=== PATIENT | female | born 1945 | race Caucasian/White ===

== ENCOUNTER 2016-11-14 21:00 | Inpatient (IN) | payer MEDICARE ==
--- NOTE | ~2016-11-14 | PN ---
Unit #: [id number] #: [id number] Patient: CHEYENNE DE LEON [id number] [facility] [address] [place] [address] [id number] MR#: [id number] NAME: CHEYENNE DE LEON ROOM: P203 Age: 71 Sex: F Admission Date: 11/14/2016 : 1945 Attending Physician: Willy Mckeon M.D. Admitting Physician: Willy Mckeon M.D. Primary Care Physician: Primary Care Physician Maria T GIANG NOTES DATE 11/23/2016 SUBJECTIVE Ms. De Leon is a 71-year-old white female, who was seen today and chart was reviewed, and case was discussed with the staff. She has been anxious, withdrawn, though has not shown any agitation or irritability. Meanwhile, she has been cooperative with treatment recommendations. MENTAL STATUS EXAMINATION An elderly white female who was casually dressed with fair personal hygiene and appears to be in no acute distress or discomfort. She was awake and alert with impaired attention . She denies any suicidal or homicidal ideations . TREATMENT PLAN 1. We will continue her on her current treatment protocol. We will monitor her response to the medications and make further adjustments as needed. 2. We will continue to follow up. Dictated by... Mary Serrano/gloria TD: 11/25/2016 10:54 JOB #: [id number] BRENDA PROGRESS NOTES Page 1 of 1 X Willy Mckeon MD PROGRESS NOTE
--- NOTE | ~2016-11-14 | PN ---
Unit #: [id number] #: [id number] Patient: CHEYENNE DE LEON [id number] [facility] [address] [place] [address] [id number] I MR#: [id number] NAME: CHEYENNE DE LEON ROOM: P203 Age: 71 Sex: F Admission Date: 11/14/2016 : 1945 Attending Physician: Willy Mckeon M.D. Admitting Physician: Willy Mckeon M.D. Primary Care Physician: Primary Care Physician Maria T GIANG NOTES DATE OF SERVICE 11/21/2016 DISCUSSION Ms. De Leon is a 71-year-old white female with mood disorder and substance abuse who was seen today. Chart was reviewed and case was discussed with the staff. She remains anxious, withdrawn, disorganized and has been exhibiting some confusional state as she stated that she does not know where she is going to go, and if she has any housing or not. Meanwhile, I am going to try to reach out to (1) __ who was prescribing her Xanax and Adderall all at the same time, and the patient has had some delirium tremor going through the detox from those medications running out all those prescriptions 2 weeks ahead of time, and abusing them on regular basis. MENTAL STATUS EXAMINATION An elderly white female who is casually dressed with fair personal hygiene, appears to be in no acute distress or discomfort. The patient was awake and alert with impaired attention and concentration. Her mood is anxious with congruent affect. She denies any suicidal or homicidal ideations and also denies any auditory or visual hallucinations. Her insight and judgment remain slightly impaired. TREATMENT PLAN 1. We will continue her on her current medications and treatment protocol. We will monitor her response to the medications and make further adjustments as needed. 2. We will continue to follow up. Dictated by... Willy Mckeon M.D. IAA/chelsig TD: 11/22/2016 07:11 JOB #: [id number] Unit #: [id number] #: [id number] Patient: CHEYENNE DE LEON RAHAT NOTES Page 1 of 1 X Willy Mckeon MD PROGRESS NOTE
--- NOTE | ~2016-11-14 | PN ---
Unit #: [id number] #: [id number] Patient: CHEYENNE DE LEON [id number] [facility] [address] [place] [address] [id number] I MR#: [id number] NAME: CHEYENNE DE LEON ROOM: P203 Age: 71 Sex: F Admission Date: 11/14/2016 : 1945 Attending Physician: Willy Mckeon M.D. Admitting Physician: Willy Mckeon M.D. Primary Care Physician: Primary Care Physician Maria T GUTIERREZ PROGRESS NOTES DATE OF SERVICE 11/20/2016 DISCUSSION Ms. De Leon is a 71-year-old white female who was seen today. Chart was reviewed and case was discussed with the staff. She has been anxious, withdrawn, and rather seclusive to herself and appears to be somewhat disorganized though has been showing some improvement in her cognitive functioning. She has been taking the medications and tolerating them fairly well with no reported side effects. MENTAL STATUS EXAMINATION An elderly white female who is casually dressed with fair personal hygiene, appears to be in no acute distress or discomfort. The patient was awake and alert with impaired attention and concentration. His mood is anxious with a congruent affect. She denies any suicidal or homicidal ideations. Her insight and judgment remain slightly impaired. TREATMENT PLAN 1. We will continue her on her current medications and treatment protocol. We will monitor her response to the medications and make further adjustments as needed. 2. We will continue to follow up. Dictated by... Willy Mckeon M.D. IAA/chelsig TD: 11/21/2016 07:50 JOB #: [id number] Unit #: [id number] #: [id number] Patient: CHEYENNE DE LEON PROGRESS NOTES Page 1 of 1 X Willy Mckeon MD X PROGRESS NOTE
--- NOTE | ~2016-11-14 | PN ---
Unit #: [id number] #: [id number] Patient: CHEYENNE DE LEON [id number] [facility] [address] [place] [address] [id number] I MR#: [id number] NAME: CHEYENNE DE LEON ROOM: P203 Age: 71 Sex: F Admission Date: 11/14/2016 : 1945 Attending Physician: Willy Mckeon M.D. Admitting Physician: Willy Mckeon M.D. Primary Care Physician: Primary Care Physician Maria T GIANG NOTES DATE OF SERVICE: 11/24/2016 SUBJECTIVE Ms. De Leon is a 71-year-old white female who was seen today and chart was reviewed and case was discussed with the staff. She has been anxious, withdrawn, and rather seclusive to herself. Meanwhile, she has been cooperative with treatment recommendations and has been taking the medications and tolerating them fairly well. MENTAL STATUS EXAMINATION An elderly white female who was casually dressed with fair personal hygiene, appears to be in no acute distress or discomfort. She was awake and alert with intact orientation. Her mood was anxious with a congruent affect. She denies any suicidal or homicidal ideations. Her insight and judgment remain slightly impaired. TREATMENT PLAN 1. We will continue her on her current treatment protocol. We will monitor her response to the medications and make further adjustments as needed. 2. We will continue to follow up. Dictated by... Willy Mckeon M.D. TOMMIE/gloria TD: 11/25/2016 05:31 JOB #: [id number] BRENDA PROGRESS NOTES Page 1 of 1 X Willy Mckeon MD PROGRESS NOTE
--- NOTE | ~2016-11-14 | HP ---
Unit #: [id number] #: [id number] Patient: ROCIO GAN [id number] [facility] [place] [address] [id number] I MR#: [id number] NAME: ROCIO GAN ROOM: P203 Age: 71 Sex: F Admission Date: 11/14/2016 : 1945 Attending Physician: Willy Mckeon M.D. Admitting Physician: Willy Mckeon M.D. Primary Care Physician: Primary Care Physician No HISTORY AND PHYSICAL HISTORY OF PRESENT ILLNESS Rocio is a 71 year old admitted to [address] [place] [address] because of her abuse of benzodiazepines. She is detoxing. PAST MEDICAL HISTORY 1. Long history of benzodiazepine use/abuse. 2. COPD. 3. Overactive bladder. PAST SURGICAL HISTORY Hysterectomy. ALLERGIES No known drug allergies. SOCIAL HISTORY She smokes 1 pack per day. Denies alcohol. Admits to a long history of benzodiazepine use/abuse. FAMILY HISTORY Medically noncontributory. REVIEW OF SYSTEMS CONSTITUTIONAL: No fever or chills. HEENT: Denies any sore throat, ear pain or runny nose. CARDIOVASCULAR: Denies chest pain, irregular heart rhythm or palpitations. CHEST: Denies shortness of breath or cough. No hemoptysis. GASTROINTESTINAL: Denies nausea, vomiting, diarrhea or chronic constipation. ENDOCRINE: Denies history of increased thirst or urination. No recent significant weight loss or gain. GENITOURINARY: Denies dysuria, frequency, or hematuria. SKIN: Denies any rashes. HEMATOLOGIC: Denies history of increased bleeding or bruising. MUSCULOSKELETAL: Denies any hot, swollen joints. No generalized muscle pain. NEUROLOGIC: Denies problems with vision or speech. No frequent, severe headaches. No numbness, tingling or weakness in any extremities. Denies loss of bladder or bowel control. CURRENT MEDICATIONS 1. Detox protocol. 2. Ditropan 5 mg b.i.d. Unit #: [id number] #: [id number] Patient: ROCIO GAN 3. Prozac 40 mg daily. 4. Claritin 10 mg daily. PHYSICAL EXAMINATION GENERAL: Alert, well-nourished, in no apparent distress. VITAL SIGNS: Blood pressure 146/78, heart rate 74, respirations 16, temperature 98.6. WEIGHT: 110. HEIGHT: 5 feet 2 inches. SKIN: Warm and dry without rash or lesion. HEENT: Normocephalic. TMs not viewed. Oral and nasal passages clear. Conjunctivae clear. PERRLA. EOMs intact. NECK: Supple without lymphadenopathy or thyromegaly. HEART: Regular rate and rhythm without murmur. LUNGS: Clear. ABDOMEN: Soft, nontender. : Not done. EXTREMITIES: No evidence of cyanosis, clubbing or edema. Moves all without focal deficit. NEUROLOGICAL: Grossly within normal limits. Cranial Nerves: II: Visual solano are intact. III, IV AND : Extraocular movements are intact. Pupils are equal, round and reactive to light. V: Facial sensation is grossly normal. VII: Facial movements and expression are normal. VIII: Auditory acuity grossly intact. IX, X: Uvula is midline. Phonation is normal. XI: Patient shrugs shoulders and turns head normally. XII: Tongue protrudes in the midline. Sensory and Motor Function: Sensory and motor sensation is grossly normal. Motor: moves all extremities well. Coordination: Gait is normal. Deep Tendon Reflexes: Intact. IMPRESSION Psychiatric admission. RECOMMENDATIONS PSYCHIATRIC: Per psychiatrist. MEDICAL: See no contraindications to participate in facility's activities. MEDICAL PROGNOSIS Good. MEDICAL CONDITION Stable. Dictated by... Graciela Doherty P.A.-Ariella. for Mary Garcia/stephen TD: 11/15/2016 19:57 JOB #: [id number] Unit #: [id number] #: [id number] Patient: ROCIO GAN HISTORY AND PHYSICAL Page 1 of 1 X Graciela Doherty HISTORY AND PHYSICAL
--- NOTE | ~2016-11-14 | PN ---
Unit #: [id number] #: [id number] Patient: CHEYENNE DE LEON [id number] [facility] [address] [place] [address] [id number] I MR#: [id number] NAME: CHEYENNE DE LEON ROOM: P203 Age: 71 Sex: F Admission Date: 11/14/2016 : 1945 Attending Physician: Willy Mckeon M.D. Admitting Physician: Willy Mckeon M.D. Primary Care Physician: Primary Care Physician Maria T GIANG NOTES DATE OF SERVICE 11/22/2016 DISCUSSION Ms. De Leon is a 71-year-old white female who was seen today. Chart was reviewed and case was discussed with the staff. She has been anxious, withdrawn, and rather seclusive to herself and has been exhibiting some persistent confusion. Meanwhile, she has been taking the medications and tolerating them fairly well with no reported side effects. MENTAL STATUS EXAMINATION An elderly white female who is casually dressed with fair personal hygiene, appears to be in no acute distress or discomfort. She was awake and alert on interaction with intact orientation. Her mood is anxious with congruent affect. She denies any suicidal or homicidal ideations. Her insight and judgment remain slightly impaired. TREATMENT PLAN 1. We will continue her on her current medications and treatment protocol. We will monitor her response to the medications and make further adjustments as needed. 2. We will continue to follow up. Dictated by... Willy Mckeon M.D. IAA/bzg TD: 11/23/2016 06:56 JOB #: [id number] BRENDA PROGRESS NOTES Page 1 of 1 X Willy Mckeon MD PROGRESS NOTE
--- NOTE | ~2016-11-14 | PN ---
Unit #: [id number] #: [id number] Patient: CHEYENNE DE LEON [id number] [facility] [address] [place] [address] [id number] I MR#: [id number] NAME: CHEYENNE DE LEON ROOM: P203 Age: 71 Sex: F Admission Date: 11/14/2016 : 1945 Attending Physician: Willy Mckeon M.D. Admitting Physician: Willy Mckeon M.D. Primary Care Physician: Primary Care Physician Maria T GUTIERREZ PROGRESS NOTES DATE 11/19/2016 DISCUSSION Ms. De Leon is a 71-year-old white female who was seen today and chart was reviewed and case was discussed with the staff. She has been anxious, withdrawn and rather seclusive to herself. Meanwhile, she has been cooperative with treatment recommendations as she has been taking the medications and tolerating them fairly well with no reported side effects. MENTAL STATUS EXAMINATION An elderly white female who was casually dressed with fair personal hygiene, appears to be in no acute distress or discomfort. She was awake and alert on interaction with intact orientation. Her mood was anxious with congruent affect. Her speech was slow and restricted in content. Her thought process was disorganized with some looseness of associations. Her insight and judgement remains significantly impaired. TREATMENT PLAN 1. We will continue her on her current medications and treatment protocol. We will monitor her response to the medication and make further adjustments as needed. 2. We will continue to follow up. Dictated by... Mary Serrano/neeraj TD: 11/20/2016 04:19 JOB #: [id number] Unit #: [id number] #: [id number] Patient: CHEYENNE DE LEON PROGRESS NOTES Page 1 of 1 X Willy Mckeon MD X PROGRESS NOTE
--- NOTE | ~2016-11-14 | DS ---
Unit #: [id number] #: [id number] Patient: [facility] DE LEON [id number] [facility] [place] [address] [id number] I MR#: [id number] NAME: CHEYENNE DE LEON ROOM: [facility] Age: 71 Sex: F Admission Date: 11/14/2016 : 1945 Discharge Date: 11/25/2016 Attending Physician: Willy Mckeon M.D. Primary Care Physician: Primary Care Physician No DISCHARGE SUMMARY IDENTIFYING DATA Ms. De Leon is a 71-year-old disabled white female, who is a resident of [place], [place], and was brought to the hospital by her family. DISCHARGE DIAGNOSES Psychiatric: Benzodiazepine dependence, moderate and acute withdrawals. Medical: Carpal tunnel syndrome. Stressors: Mild psychosocial stressors. HISTORY OF PRESENT ILLNESS Please see initial psychiatric evaluation for details. PAST PSYCHIATRIC HISTORY Please see initial psychiatric evaluation for details. PAST MEDICAL HISTORY Please see initial psychiatric evaluation for details. HOSPITAL COURSE The patient was admitted to the adult psychiatric and chemical dependency unit at [facility] dontrell Castellanos and was oriented to the hospital environment. Routine p.r.n. medications were initiated, and she was started back on her home medications, though she was noticed to be on a very bizarre regimen of medication for her age of 71 as she has been seeing Dr. Danielson on an outpatient basis and has been prescribed Xanax as well as Adderall at the same time, and she apparently has been abusing Xanax and has been running out before time with each successive prescription. At this time, she ran out 2 weeks before her next cycle and therefore was going into acute withdrawal symptoms, which actually worsened upon presentation. She was noted to have acute delirium tremens like phase with confusion, disorientation, and bizarre behavior and was kept on one-to-one level of precaution, and detox protocol was maintained until she slowly started coming out of the detox and then was able to show a fairly decent therapeutic response and was awake and alert, though we still had concerns that she is probably going to go back to Dr. Danielson and is going to get prescriptions of Adderall and Xanax again, which both of them has been discontinued and she has been slowly and gradually detox with some complications and she has been in the hospital for almost 12 days and as such, we will recommend that the doctor will get hold of the previous discharge summary and try to look into the events that led to this prolonged hospitalization and recommendation will also be made. The patient not to be prescribed benzodiazepines in general due to her history of addiction. Unit #: [id number] #: [id number] Patient: CHEYENNE DE LEON DISCHARGE MEDICATIONS Prozac 40 mg a day for depression. DISCHARGE CONDITION Stable. PROGNOSIS Fair. Dictated by... Mary Serrano/gloria TD: 11/25/2016 06:48 JOB #: [id number] DISCHARGE SUMMARY Page 1 of 1 X Willy Mckeon MD X DISCHARGE SUMMARY
--- NOTE | ~2016-11-14 | PN ---
Unit #: [id number] #: [id number] Patient: CHEYENNE DE LEON [id number] [facility] [address] [place] [address] [id number] I MR#: [id number] NAME: CHEYENNE DE LEON ROOM: P203 Age: 71 Sex: F Admission Date: 11/14/2016 : 1945 Attending Physician: Willy Mckeon M.D. Admitting Physician: Willy Mckeon M.D. Primary Care Physician: Primary Care Physician Maria T GIANG NOTES DATE OF SERVICE: 11/17/2016 SUBJECTIVE Ms. De Leon is a 71-year-old white female, who was seen today and chart was reviewed, and case was discussed with the staff. She has been anxious, withdrawn, and rather seclusive to herself. Meanwhile, she has been cooperative with treatment recommendations and has been taking medication and tolerating them fairly well with no reported side effects. MENTAL STATUS EXAMINATION An elderly white female who was casually dressed with fair personal hygiene, appears to be in no acute distress or discomfort. She was awake and alert with impaired attention and concentration. Her mood was anxious with a congruent affect. She denies any suicidal or homicidal ideations and also denies any auditory or visual hallucinations. Her insight and judgment remain slightly impaired. TREATMENT PLAN 1. We will continue on her current treatment protocol. We will monitor her response to medications and make further adjustments as needed. 2. We will continue to follow up. Dictated by... Mary Serrano/gloria TD: 11/19/2016 06:45 JOB #: [id number] BRENDA PROGRESS NOTES Page 1 of 1 X Willy Mckeon MD PROGRESS NOTE
--- NOTE | ~2016-11-14 | PN ---
Unit #: [id number] #: [id number] Patient: CHEYENNE DE LEON [id number] [facility] [address] [place] [address] [id number] I MR#: [id number] NAME: CHEYENNE DE LEON ROOM: P203 Age: 71 Sex: F Admission Date: 11/14/2016 : 1945 Attending Physician: Willy Mckeon M.D. Admitting Physician: Willy Mckeon M.D. Primary Care Physician: Primary Care Physician Maria T GIANG NOTES DATE 11/16/2016 DISCUSSION Ms. De Leon is a 71-year-old white female with benzodiazepine dependence who was seen today and chart was reviewed and case was discussed with the staff who report patient has been doing good and has been confused, bizarre and appears to be going into delirium tremors and has been difficult to be redirected and unable to carry on any meaningful conversation. She has been walking into the nursing station when I tried to interact her, she was unable to make much sense at all and as such recommendation for the patient to be put on one to one level of precautions was made and detox for benzodiazepines will be maintained as well. We will monitor response to treatment interventions. We will make further adjustments as needed. Dictated by... Mary Serrano/neeraj TD: 11/18/2016 05:24 JOB #: [id number] BRENDA GIANG NOTES Page 1 of 1 X Willy Mckeon MD X PROGRESS NOTE
--- NOTE | ~2016-11-14 | PA ---
Unit #: [id number] #: [id number] Patient: CHEYENNE DE LEON [id number] [facility] [address] [place] [address] [id number] MR#: [id number] NAME: CHEYENNE DE LEON ROOM: P203 Age: 71 Sex: F Admission Date: 11/14/2016 : 1945 Date of Assessment: 11/15/2016 Attending Physician: Willy Mckeon M.D. Admitting Physician: Willy Mckeon M.D. Primary Care Physician: Primary Care Physician No PSYCHIATRIC ASSESSMENT IDENTIFYING DATA Ms. De Leon is a 71-year-old, , disabled, white female, who is a resident of [place], [place], and was self-referred to the hospital on a voluntary basis. CHIEF COMPLAINT "I've been off my Xanax and Prozac for 2 days." HISTORY OF PRESENT ILLNESS Ms. De Leon is a 71-year-old white female, who was self-referred herself to the hospital reporting that she has been detoxing from Xanax and feels that she is going to have a seizure and that she is unable to get a refill for both of those medications because it is "too soon to get a refill." She reports that she is able to get a refill in 2 weeks and reports mild withdrawal symptoms and "my veins are pulling on me." She reports she feels like she has electricity going through her body and reports experiencing jerky sensation throughout her body and reports her arms and legs spasming and that she takes too much of her Prozac and Xanax because she has forgotten she has taken her dose for the day; however, it appears clearly that she has been abusing her Xanax and has used a month's supply in 2 weeks and now she has not had any Xanax in 2 weeks and therefore, she feels that she is getting ready to have significant withdrawal symptoms and seizure-like activity and that she would not be able to get a refill in 2 weeks and therefore, she wants to come here to get help. However, it is not clear if she is willing to give up her Xanax or after detoxing from here, she will want to go back to Dr. Danielson who has been prescribing her Xanax and get back on her Xanax. I have also noticed that in addition to Xanax, she also has been taking Adderall and it is not clear why she will be taking a stimulant and a downer at the same time. PAST PSYCHIATRIC HISTORY The patient reports ongoing outpatient psychiatric treatment, has been seeing Dr. Danielson on an outpatient basis and has been getting a combination of Prozac, Adderall and Xanax. PAST MEDICAL HISTORY The patient's medical history is insignificant. ALLERGIES No known medication allergies. PERSONAL AND SOCIAL HISTORY A 71-year-old white female, who reports that she is single, unemployed, Unit #: [id number] #: [id number] Patient: CHEYENNE DE LEON and lives at home with her daughter and has fairly decent social support system. MENTAL STATUS EXAMINATION An elderly white female, who was casually dressed with fair personal hygiene, appears to be in no acute distress or discomfort. She was awake and alert on interaction with intact orientation to time, place, and person. Her mood was anxious and depressed with a congruent affect. Her speech was slow and restricted in content. Her thought processes were disorganized with some looseness of associations and suicidal ideations. Her insight and judgment remain significantly impaired. DIAGNOSTIC IMPRESSION Psychiatric: Benzodiazepine dependence, moderate; benzodiazepine withdrawal syndrome. Medical: Carpal tunnel syndrome. Stressors: Moderate psychosocial stressors. TREATMENT PLAN 1. The patient has presented with a history of substance abuse which is mostly physician induced as the patient for her age of 71 without having any job or school has been getting Adderall and then also has been getting Xanax and she has been abusing Xanax and I am not sure how long she has been going on, but she apparently has been running her prescription out before time and it is not clear what does for the days that she runs out of the prescription, but it appears that she has been running out sooner, even each cycle and she is not due for her refill for another 2 weeks and at the same time, she has been going to the same provider and getting a prescription for Adderall and Xanax at the same time without any scrutiny of patient abusing or running out before time and now she is going through acute withdrawal symptoms and she will need an acute inpatient hospitalization just to detox off Xanax, but my concern remains if she goes back to the same provider and keeps getting on the same prescription as I would discontinue her Adderall as well and will put her on the benzodiazepine detox protocol and we will monitor response and make further adjustments as needed. 2. Supportive therapy was provided to the patient. 3. Safe, structured, and nourishing environment will be reported. ESTIMATED LENGTH OF STAY 5 to 7 days. ABILITY TO HELP SELF Limited. WILLINGNESS TO HELP SELF The patient appears to be willing to help self. STRENGTHS 1. Communicative. 2. Cooperative. PROBLEMS 1. Chronic dysphoric symptoms. 2. Chronic chemical dependency. 3. Poor social support system. Unit #: [id number] #: [id number] Patient: CHEYENNE DE LEON DISCHARGE CRITERIA This will be contingent upon the patient's ability to go through detox as well as her ability to stay safe to herself, particularly after discharge from the hospital. Dictated by... Willy Mckeon M.D. TOMMIE/gloria TD: 11/15/2016 07:41 JOB #: [id number] PSYCHIATRIC ASSESSMENT Page 1 of 1 X Willy Mckeon MD PSYCHIATRIC ASSESSMENT
--- NOTE | ~2016-11-14 | PN ---
Unit #: [id number] #: [id number] Patient: CHEYENNE DE LEON [id number] [facility] [address] [place] [address] [id number] MR#: [id number] NAME: CHEYENNE DE LEON ROOM: P203 Age: 71 Sex: F Admission Date: 11/14/2016 : 1945 Attending Physician: Willy Mckeon M.D. Admitting Physician: Willy Mckeon M.D. Primary Care Physician: Primary Care Physician Maria T GIANG NOTES DATE OF SERVICE: 11/17/2016 SUBJECTIVE Ms. De Leon is a 71-year-old white female, who was seen today and chart was reviewed and the case was discussed with the staff. She has been anxious, withdrawn, confused, disorganized, and has been rather seclusive to herself. Meanwhile, she has been cooperative with the treatment recommendations and has been taking the medications and tolerating them fairly well. She remains in acute delirium tremens and as such, we will maintain her on her current level of precautions. We will monitor her response and make further adjustments as needed. Dictated by... Mary Serrano/lgoria TD: 11/18/2016 16:56 JOB #: [id number] BRENDA GIANG NOTES Page 1 of 1 X Willy Mckeon MD PROGRESS NOTE
[2016-11-16 11:56] LABS: BASOPHIL# 0.1 X10e3 (0-0.3); BASOPHIL% 0.7 % (0-2.5); EOSINOPHIL# 0.1 X10e3 (0-0.7); EOSINOPHIL% 1.7 % (0.0-7.0); HEMOGLOBIN 12.8 gm/dL (12.0-16.0); LYMPHOCYTE# 2.7 X10e3 (1.0-3.5); LYMPHOCYTE% 34.7 % (17.0-45.0); MEAN CELL VOLUME 92.7 FL (83-96); MEAN CORPUSCULAR HEMOGLOBIN 29.7 PG (28-34); MEAN CORPUSCULAR HGB CONC 32.1 g/dL (30-36); MEAN PLATELET VOLUME 9.1 FL (6.5-11.5); MONOCYTE# 0.7 X10e3 (0-1.0); MONOCYTE% 9.2 % (3.0-12.0); NEUTROPHIL# 4.2 X10e3 (1.5-7.1); NEUTROPHIL% 53.7 % (40-75); PLATELET COUNT 294 X10e3 (140-420); RED BLOOD COUNT 4.32 X10e (3.90-5.30); RED CELL DISTRIBUTION WIDTH 13.6 % (11.0-15.5); WHITE BLOOD COUNT 7.8 X10e3 (4.0-10.5)
[2016-11-16 11:59] LABS: DIFF IND NO
[2016-11-16 12:08] LABS: ALBUMIN SERUM 4.5 g/dL (3.5-5.0); BILIRUBIN,TOTAL 0.6 mg/dL (0.2-2.0); BUN/CREATININE RATIO 18.57; CALCIUM SERUM 9.4 mg/dL (8.4-10.2); CREATININE SERUM 0.7 mg/dL (0.6-1.4); GLOM FILT RATE Estimated 87.8 mL/min (>60); POTASSIUM 3.9 mmol/L (3.5-5.1); PROTEIN TOTAL SERUM 7.8 g/dL (6.0-8.3)
[2016-11-16 14:45] LABS: URINE APPEARANCE CLEAR; URINE BILIRUBIN NEG (NEG); URINE BLOOD TRACE (NEG); URINE COLOR YELLOW; URINE GLUCOSE NEG (NEG); URINE KETONE TRACE (NEG); URINE LEUKOCYTE ESTERASE NEG (NEG); URINE NITRATE NEG (NEG); URINE PROTEIN NEG (NEG); URINE SPECIFIC GRAVITY 1.009 (1.003-1.035); URINE UROBILINOGEN 0.2 MG/DL (NEG)
[2016-11-16 14:49] LABS: URINE BACTERIA AUWI NEG (NEGATIVE); URINE SQUAMOUS EPITHELIAL CELL NONE SEEN /[HPF]; UWBCS1 AUWI 0-2 (0-5)
[2016-11-16 14:53] LABS: AMPHETAMINE NEG (NEG); BARBITURATES NEG (NEG); BENZODIAZEPINES POS (NEG); COCAINE NEG (NEG); MARIJUANA NEG (NEG); OPIATES NEG (NEG); TRICYCLIC ANTIDEPRESSANTS NEG (NEG); U METHADONE NEG (NEG)
== END 2016-11-25 20:00 | disposition home or self-care (01) | DRG 897 ==
LOC: P2S 22:40
PROVIDERS: Psychiatry & Neurology Psychiatry
PROC: HZ2ZZZZ Detoxification Services for Substance Abuse Treatment (ICD-10-PCS; principal; 2016-11-14)
DX: F13.239 Sedative, hypnotic or anxiolytic dependence with withdrawal, unspecified (principal); J44.9 Chronic obstructive pulmonary disease, unspecified; F17.210 Nicotine dependence, cigarettes, uncomplicated; Z90.710 Acquired absence of both cervix and uterus
CPT/HCPCS: 80053; 80307; 81003; 85025; 86592